=== PATIENT | female | born 1960 | race Caucasian/White ===

== ENCOUNTER 2017-03-17 11:29 | Emergency (ER) | payer BC ==
[2017-03-17 12:33] VITALS: BP 134/63
--- NOTE | 2017-03-17 12:48 | RAD ---
Indication: LEFT ankle and knee pain post fall onto ice today. Comparison: November 03, 2010 radiographs. Technique: AP, mortise, and lateral views LEFT ankle. Report: Normal articular alignment. Talocrural joint effusion. Mild soft tissue swelling over the lateral malleolus. Change in appearance of osseous irregularity at the caudal margin of the lateral malleolus compared with the prior exam suspicious for probable acute ligament osseous avulsion. No additional fracture evident. Small Achilles tendon insertion and moderate plantar fascia origin bone spurs. IMPRESSION: The constellation of findings favors acute potentially on chronic ligamentous injury with small osseous avulsion from the caudal margin of the lateral malleolus. Associated talocrural joint effusion and soft tissue swelling over the lateral malleolus without articular malalignment. Injury involving the anterior talofibular ligament and or calcaneofibular ligament would be most likely.
--- NOTE | 2017-03-17 12:50 | RAD ---
Indication: LEFT knee and ankle pain post fall onto ice. Comparison: No relevant prior exams available on the [facility] for comparison. Technique: LEFT knee: AP, tunnel, lateral, sunrise views. Report: Negative for joint effusion, fracture, or malalignment. Mild osteophytosis. Mild diffuse joint space narrowing. Unremarkable soft tissue contours. IMPRESSION: Negative for effusion or fracture. Kellgren and Brendan grade 2 osteoarthritis.
[2017-03-17] MEDS ORDERED: Acetaminophen TAB* 325 MG PO ONE (12:52)
--- NOTE | 2017-03-17 12:59 | UC ---
Lower Extremity/Ankle HPI - HPI Summary HPI Summary: Pt slipped on stairs that were wet. Pt with discomfort to left lateral aspect of ankle. Pt with pain at first, then got worse. No analgesia taken. No strike head. no blood HENT. No neck, back pain "from usual" No paresthesia. No anticoagulants. Pt on meds for chronic pain. Pt unable to take NSAIDs second to gastric bypass pt's medications reviewed this visit - History of Current Complaint Chief Complaint: UCLowerExtremity Stated Complaint: LEFT ANKLE AND KNEE INJURY Time Seen by Provider: 03/17/17 12:21 Hx Obtained From: Patient Hx Last Menstrual Period: 2 yrs ?: No Onset/Duration: Gradual Onset Severity Initially: Mild Severity Currently: Moderate Aggravating Factor(s): Standing, Ambulation - Allergies/Home Medications Allergies/Adverse Reactions: Allergies Allergy/AdvReac Type Severity Reaction Status Date / Time Ibuprofen AdvReac Intermediate GI Upset Verified 03/17/17 12:02 Home Medications: Home Medications Lansoprazole [Prevacid] 30 mg PO DAILY 03/17/17 [History Confirmed 03/17/17] PMH/Surg Hx/FS Hx/Imm Hx Previously Healthy: No Cardiovascular History: Hypertension - Surgical History Surgical History: Yes Surgery Procedure, Year, and Place: gastric bypass 1998, 1991, hip surgery - Family History Known Family History: Positive: None - Social History Occupation: Retired Alcohol Use: Occasionally Substance Use Type: None Smoking Status (MU): Never Smoked Tobacco - Immunization History Most Recent Influenza Vaccination: unsure Review of Systems Constitutional: Negative Skin: Negative Musculoskeletal: Arthralgia, Other: - left ankle All Other Systems Reviewed And Are Negative: Yes Physical Exam Triage Information Reviewed: Yes Appearance: Well-Appearing, No Pain Distress, Well-Nourished Vital Signs: Initial Vital Signs Temp 98.2 F 03/17/17 12:06 Pulse 53 03/17/17 12:06 Resp 20 03/17/17 12:06 BP 134/63 03/17/17 12:06 Vital Signs Reviewed: Yes Eye Exam: Normal Eyes: Positive: Conjunctiva Clear ENT Exam: Normal ENT: Positive: Pharynx normal, TMs normal Dental Exam: Normal Neck exam: Normal Neck: Positive: Supple, Nontender, No Lymphadenopathy Respiratory Exam: Normal Respiratory: Positive: Chest non-tender, Lungs clear, Normal breath sounds, No respiratory distress, No accessory muscle use Cardiovascular Exam: Normal Cardiovascular: Positive: RRR, No Murmur, Other: - 2+ CBT < 2 sec Abdominal Exam: Normal Abdomen Description: Positive: Nontender, No Organomegaly Bowel Sounds: Positive: Present Musculoskeletal: Positive: Other: - + SLE + flex/ext knee with mild discomfort No pain along joint line no pain tib/fib prox + flex/ext ankle left lateral malleolus inferior aspect, posterior aspect focal STS no crepitus No pain along tarsals, metatarsls, phalanges + discomfort with flex/ext Neurological Exam: Normal Neurological: Positive: Alert, Other: - + gross sensation throughout Psychological Exam: Normal Skin Exam: Normal Diagnostics - Radiology No standard instances Xray Interpretation: Positive (See Comments) Radiology Interpretation Completed By: Radiologist - lateral mal chip fracture STS Re-Evaluation - Re-Evaluation First Eval Comment: reviewed imaging with pt. cam boot. walker. norco/apap - precautions discussed istop check. ice. elevate. Pt has orthopedist in [place] - disc given Lower Extremity Course/Dx - Differential Dx/Diagnosis Provider Diagnoses: avulsion fx, ankle sprain Discharge - Discharge Plan Condition: Stable Disposition: HOME Prescriptions: HYDROcodone/ACETAMIN 5-325 MG* [[place] 5-325 TAB*] 1 - 2 tab PO Q6H PRN #15 tab MDD 8 PRN Reason: Severe Pain Patient Education Materials: Ankle Sprain (ED), Avulsion Fracture (ED) Referrals: Iliana Wells MD [Primary Care Provider] - Additional Instructions: - wear walking boot for support - Okay to take tylenol or [place] every [address], operate machinery or drink alcohol while taking [place] - apply ice (wrapped in a towel) 20 minutes at a time, 2-3 times a day for pain or swelling - anticipate increased pain over the next 36-48 hours. This is normal after a fall - contact your orthopedic provider in [place] to schedule a follow-up appointment.
== END 2017-03-17 13:43 | disposition home or self-care (01) ==
LOC: UCCORT 11:29
DX: S82.62XA Displaced fracture of lateral malleolus of left fibula, initial encounter for closed fracture (principal); I10 Essential (primary) hypertension; S93.402A Sprain of unspecified ligament of left ankle, initial encounter; G89.29 Other chronic pain; W00.1XXA Fall from stairs and steps due to ice and snow, initial encounter; Y92.9 Unspecified place or not applicable
CPT/HCPCS: 99213; A9270-GY; G0463

== ENCOUNTER 2018-02-11 11:52 | Emergency (ER) | payer BC ==
[2018-02-11 12:17] VITALS: BP 102/68
--- NOTE | 2018-02-11 12:30 | UC ---
Respiratory Complaint HPI - HPI Summary HPI Summary: Patient presents to the urgent care reporting 5 days of progressive cough and congestion. Patient states her lungs feel tight and wheezy worsen night. Patient's taken NyQuil and DayQuil without much relief. Patient denies fevers but does have chills and fatigue. Patient denies nausea vomiting but decreased appetite. Patient also reports bilateral ear pain is congestion postnasal drip. 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 Patient reports sick contacts or but no known strep. Patient's medications are reviewed this visit. Patient is not immunocompromised. - History of Current Complaint Chief Complaint: UCRespiratory Stated Complaint: COUGH, FATIGUE Time Seen by Provider: 02/11/18 12:22 Hx Obtained From: Patient Hx Last Menstrual Period: n/a Onset/Duration: Gradual Onset Timing: Constant Severity Initially: Mild Severity Currently: Mild Pain Intensity: 2 - Allergies/Home Medications Allergies/Adverse Reactions: Allergies Allergy/AdvReac Type Severity Reaction Status Date / Time ibuprofen AdvReac GI Upset Verified 02/11/18 12:12 Home Medications: Home Medications Cyanocobalamin TAB* [Vitamin B12 TAB*] 500 mcg PO DAILY 02/11/18 [History Confirmed 02/11/18] buPROPion SR TAB* [Wellbutrin SR TAB*] 100 mg PO DAILY 02/11/18 [History Confirmed 02/11/18] PMH/Surg Hx/FS Hx/Imm Hx Previously Healthy: Yes Cardiovascular History: Hypertension - Surgical History Surgical History: Yes Surgery Procedure, Year, and Place: gastric bypass 1998, 1991, right arm surgery, breast reduction 2016 - Family History Known Family History: Positive: Non-Contributory - Social History Occupation: Employed Part-time, Retired Alcohol Use: Rare Substance Use Type: None Smoking Status (MU): Never Smoked Tobacco - Immunization History Most Recent Influenza Vaccination: unsure Review of Systems All Other Systems Reviewed And Are Negative: Yes Constitutional: Positive: Chills, Fatigue ENT: Positive: Ear Ache, Nasal Discharge, Sinus Congestion, Sinus Pain/ Tenderness Respiratory: Positive: Cough, Other - wheeze Neurological: Positive: Negative Physical Exam - Summary Physical Exam Summary: Vital Signs Reviewed: Yes A+Ox3, no distress, intermittent coarse coug Eyes: Conjunctiva Clear, REINA. EOM intact and full ENT: Hearing grossly normal left TM + fluid no erythema, no retraction turbinates inflammed and boggy, + PND , mmoist, uvula midline, no exudate, no erythema Neck: Positive: Supple Respiratory: Positive: No respiratory distress, No accessory muscle use, coarse cough + end exp wheeze b/l no rhonci Cardiac: RRR nl s1, s2 no m/r abd soft + BS nt/nd no guarding, no distension Musculoskeletal Exam: SOLIS x 4 without difficulty Strength Intact, ROM Intact Neurological: Positive: Alert, + sensation throughout Psychological: Positive: Normal Response To Family Skin: Positive: no rash, no ecchymosis Triage Information Reviewed: Yes Vital Signs: Initial Vital Signs Temp 98.2 F 02/11/18 12:10 Pulse 70 02/11/18 12:10 Resp 18 02/11/18 12:10 BP 102/68 02/11/18 12:10 Pulse Ox 99 02/11/18 12:10 Diagnostic Evaluation - Laboratory O2 Sat by Pulse Oximetry: 99 Re-Evaluation - Re-Evaluation First Eval Re-Evaluation Time: 13:10 Change: Improved Comment: wheezing resolved. Pt reports feeling improved. Will d/c with abx, flonase, mdi. secretion precaution. return precaution. pt comfortable with plan Respiratory Course/Dx - Course Course Of Treatment: Patient with 4 days progressive cough and congestion. Patient also with sinus congestion ear pain. Patient's taken [id number] meds without relief. Patient works in elementary school. On exam patient's vital signs reviewed. Patient with end expiratory wheezing bilaterally, sinus congestion, serous otitis left ear. . We'll give DuoNeb and reassessed. - Differential Dx/Diagnosis Provider Diagnoses: acute bronchitis. layrngitis. left otitis serous Discharge - Sign-Out/Discharge Documenting (check all that apply): Patient Departure All imaging exams completed and their final reports reviewed: No Studies - Discharge Plan Condition: Stable Disposition: HOME Prescriptions: Albuterol HFA INHALER* [Ventolin HFA Inhaler*] 2 puff INH Q4H PRN #1 mdi PRN Reason: wheeze Amoxicillin PO (*) [Amoxicillin 500 MG CAP*] 500 mg PO Q12H #20 cap Fluconazole 150 MG (NF) [Diflucan 150 mg (NF)] 150 mg PO ONCE #1 tab Fluticasone NASAL SPRAY 50MCG* [Flonase NASAL SPRAY 50MCG*] 2 spray BOTH NARES DAILY #1 btl Inhaler, Assist Devices [Aerochamber Mv] 1 each PO Q4HR #1 spacer Patient Education Materials: Acute Bronchitis (ED), Serous Otitis Media (ED) Referrals: Iliana Wells MD [Primary Care Provider] - Additional Instructions: - Stay well hydrated. Drink plenty of non-alcoholic, non-caffinated beverages. - Alternate ibuprofen (Advil, Motrin) 600mg and Tylenol every 3 hours for pain or fever. Take with food. Do NOT take for more than 4-5 days. - These infections are spread by secretions - do NOT share eating or drinking utensils - clean items you share with other people such as cell phones, computer mouse, TV remote, computer tablets,etc. Once you have been antibiotics for 2 days, change your toothbrush and your pillowcase. - get plenty of restful sleep - use inhaler - 2 puffs every 4 hours today and tomorrow, then every 4hours as needed - humidify the air in the room where you sleep - boil water, run a hot steam shower, vaporizer, cups of water by heat register - okay to take over the counter decongestant and cough medication - use nasal spray as prescribed - you have been given treatment for a vaginal yeast infection if you develop after taking antibiotics - contact your doctor or return with questions or concerns - Billing Disposition and Condition Condition: STABLE Disposition: Home
[2018-02-11] MEDS ORDERED: Albuterol/Ipratropium NEB.SOL* Albuterol 2.5 MG/Ipratropium 0.5 MG 3 ML INH ONE (12:39)
== END 2018-02-11 13:16 | disposition home or self-care (01) ==
LOC: UCCORT 11:52
DX: J20.9 Acute bronchitis, unspecified (principal); J04.0 Acute laryngitis; H65.92 Unspecified nonsuppurative otitis media, left ear; I10 Essential (primary) hypertension; Z88.6 Allergy status to analgesic agent
CPT/HCPCS: 99212; A9270-GY; G0463

== ENCOUNTER 2019-03-01 15:18 | Emergency (ER) | payer BC ==
[2019-03-01 16:12] VITALS: BP 139/80
--- NOTE | 2019-03-01 17:05 | UC ---
Hand/Wrist HPI - HPI Summary HPI Summary: 58-year-old female who complains of right thumb pain without any specific injury. She also complains of both ears being plugged. No recent cold symptoms. She also complains of some dysuria just today. Denies any fever or chills. - History Of Current Complaint Chief Complaint: UCUpperExtremity Stated Complaint: RT THUMB INJURY/EAR PAIN Time Seen by Provider: 03/01/19 16:17 Hx Obtained From: Patient Hx Last Menstrual Period: n/a ?: No Onset/Duration: Gradual Onset Severity Initially: Mild Severity Currently: Mild Pain Intensity: 1 Character Of Pain: Dull, Aching Aggravating Factor(s): Movement Alleviating Factor(s): Rest Associated Signs And Symptoms: Positive: Negative - Allergies/Home Medications Allergies/Adverse Reactions: Allergies Allergy/AdvReac Type Severity Reaction Status Date / Time ibuprofen AdvReac GI Upset Verified 03/01/19 16:05 Home Medications: Home Medications Gabapentin CAP(*) [Neurontin 100 mg CAP(*)] 1 tab PO TID 03/01/19 [History Confirmed 03/01/19] Montelukast Sodium TAB* [Singulair 10 MG TAB*] 10 mg QPM 03/01/19 [History Confirmed 03/01/19] Naproxen TAB* [Naprosyn 250 mg TAB*] 500 mg DAILY 03/01/19 [History Confirmed ] PMH/Surg Hx/FS Hx/Imm Hx Previously Healthy: Yes Psychological History: Depression - Surgical History Surgical History: Yes Surgery Procedure, Year, and Place: gastric bypass 1998, 1991, right arm surgery, breast reduction 2016 - Family History Known Family History: Positive: None, Non-Contributory - Social History Lives: With Family Alcohol Use: Rare Substance Use Type: None Smoking Status (MU): Never Smoked Tobacco - Immunization History Most Recent Influenza Vaccination: unsure Review of Systems All Other Systems Reviewed And Are Negative: Yes ENT: Positive: Ear Ache - Ears are not painful however she feels they're plugged. Genitourinary: Positive: Dysuria, Frequency - Urinary symptoms started today. Musculoskeletal: Positive: Other: - Patient states over the past week she has developed some right thumb pain. She has been caring for her elderly father over the past few months and she denies any specific injury however noticed this week that the base of her right thumb is painful this week. She denies any numbness or tingling. Is Patient Immunocompromised?: No Physical Exam Triage Information Reviewed: Yes Appearance: Well-Appearing, No Pain Distress, Well-Nourished Vital Signs: Initial Vital Signs Temp 99.2 F 03/01/19 16:07 Pulse 77 03/01/19 16:07 Resp 16 03/01/19 16:07 BP 139/80 03/01/19 16:07 Pulse Ox 97 03/01/19 16:07 Vital Signs Reviewed: Yes Eyes: Positive: Conjunctiva Clear ENT: Positive: Hearing grossly normal, Pharynx normal, TMs normal, Uvula midline Neck: Positive: Supple, Nontender, No Lymphadenopathy Respiratory: Positive: Lungs clear, Normal breath sounds, No respiratory distress, No accessory muscle use Cardiovascular: Positive: RRR, No Murmur, Pulses Normal, Brisk Capillary Refill Abdomen Description: Positive: Nontender, No Organomegaly, Soft. Negative: CVA Tenderness (R), CVA Tenderness (L), Distended, Guarding, Hepatomegaly, Splenomegaly Bowel Sounds: Positive: Present Musculoskeletal Exam: Normal Musculoskeletal: Positive: Other: - Good peripheral pulses, neuro sensation and capillary refill. Full range of motion with good finger strength to flexion extension against resistance.. Minimal tenderness on palpation of the base of the right thumb. No erythema, deformity, swelling or bruising is noted. She has good thumb to fingers. Hand/Wrist Course/Dx - Course Course Of Treatment: Right thumb x-ray: Negative Urinalysis: Positive for leukocytes The patient is comfortable here. She is to follow-up with the orthopedist if she has continued thumb pain. Increase fluids. She is going to try Flonase 2 sprays in each nostril once a day per week and see if that helps the feeling of the ears being plugged. - Differential Dx/Diagnosis Provider Diagnosis: Allergic rhinitis, Thumb sprain, UTI (urinary tract infection) Discharge ED - Sign-Out/Discharge Documenting (check all that apply): Patient Departure All imaging exams completed and their final reports reviewed: Yes - Discharge Plan Condition: Good Disposition: HOME Prescriptions: Fluticasone NASAL SPRAY 50MCG* [Flonase NASAL SPRAY 50MCG*] 2 spray BOTH NARES DAILY 7 Days #1 btl Sulfamethox/Trimethoprim DS* [Bactrim DS 800/160 TAB*] 1 tab PO BID 5 Days #10 tab Patient Education Materials: Urinary Tract Infection in Women (DC), Allergic Rhinitis (DC), Finger Sprain (ED) Referrals: Iliana Wells MD [Primary Care Provider] - Bubba Grullon MD [Medical Doctor] - Additional Instructions: Apply heat to the thumb, may take Tylenol for pain. Avoid repetitive motion. Definite follow-up with the orthopedist if continued pain. Use your Flonase nasal spray 2 sprays in each nostril once a day for a week and then decrease to 1 spray in each nostril once a day per week. For the urinary tract infection increase fluids, take the Bactrim with food, follow-up with your primary care provider if no improvement by Wednesday. If you develop any fever, chills, back pain, vomiting and unable keep the medicine down and go to the emergency room for further treatment. - Billing Disposition and Condition Condition: GOOD Disposition: Home - Attestation Statements Provider Attestation: I was available for consult. This patient was seen by the ALEM. The patient was not presented to, seen by, or examined by me. -Taisha
== END 2019-03-01 17:22 | disposition home or self-care (01) ==
LOC: UCCORT 15:18
DX: S63.601A Unspecified sprain of right thumb, initial encounter (principal); N39.0 Urinary tract infection, site not specified; J30.9 Allergic rhinitis, unspecified; Z88.6 Allergy status to analgesic agent; X58.XXXA Exposure to other specified factors, initial encounter; Y92.9 Unspecified place or not applicable
CPT/HCPCS: 81002; 81003; 87086; 99212; G0463

== ENCOUNTER 2021-07-24 10:53 | Observation (INO) ==
[~2021-07-24 10:53] MED LIST: Buffered Lidocaine 1% SYRIN 1 ml INTRADERM ONE; Lactated Ringers 1000 ml BAG 1,000 ML IV SCH; Naloxone 0.4 mg VIAL 0.4 mg/ml 1 ml VIAL IV PRN; Ondansetron 4 mg VIAL 2 MG/ML 2 ml VIAL IV PRN
[2021-07-24] MEDS ORDERED: Propofol 10 MG/ML 20 ML BTL ONE ×2 (10:54→15:35)
[2021-07-24] MEDS ORDERED: Ondansetron 4 mg VIAL 2 MG/ML 2 ml VIAL ONE (10:54)
[2021-07-24] MEDS ORDERED: Dexamethasone IV 4 MG/ML VIAL 1 ml VIAL ONE ×2 (10:54→11:41)
[2021-07-24] MEDS ORDERED: Lidocaine 2% PF 5 ML VIAL ONE (10:54)
[2021-07-24] MEDS ORDERED: HYDROmorphone 0.5 MG/0.5 ML SYRINGE ONE ×2 (10:54→14:07)
[2021-07-24] MEDS ORDERED: Midazolam 2 mg/2 ml VIAL 1 mg/ml 2 ml VIAL (2 mg) ONE ×2 (10:54→11:41)
[2021-07-24] MEDS ORDERED: fentaNYL 250 mcg/5 ml 50 MCG/ML 5 ml VIAL (250 MCG) ONE (10:55)
[2021-07-24] MEDS ORDERED: ceFAZolin 2 GM PREMIX 2 GM/50 ML BAG ONE (11:00)
[2021-07-24] MEDS ORDERED: Bupivacaine 0.5% SDV PF 30ML VIAL ONE (12:00)
[2021-07-24] MEDS ORDERED: Lidocaine 1% MPF 5 ML VIAL ONE (12:01)
[2021-07-24] MEDS ORDERED: Ropivacaine 5 MG/ML 20 ML VIAL 0.5% (100 MG) ONE (12:47)
[2021-07-24] MEDS ORDERED: Rocuronium 50 mg VIAL 10 mg/ml 5 ml VIAL (50 mg) ONE (13:18)
[2021-07-24] MEDS ORDERED: Labetalol IV 5 MG/ML 20 ml VIAL ONE (14:15)
[2021-07-24] MEDS ORDERED: Lactulose 30 ml UDC PO PRN (14:32)
[2021-07-24] MEDS ORDERED: Magnesium Hydroxide LIQ 30 ML UDC PO PRN (14:32)
[2021-07-24] MEDS ORDERED: Ondansetron ODT 4 mg TAB 4 MG TAB PO PRN (14:32)
[2021-07-24] MEDS ORDERED: Ondansetron 4 mg VIAL 2 MG/ML 2 ml VIAL IV PRN (14:32)
[2021-07-24] MEDS ORDERED: fentaNYL 100 mcg/2 ml 50 MCG/ML VIAL ONE ×2 (15:53→16:32)
[2021-07-24] MEDS: fentaNYL 100 mcg/2 ml 50 MCG/ML VIAL IV PRN ×5 (15:55→16:37)
[2021-07-24] MEDS: HYDROmorphone 1 MG/1 ML SYRINGE IV PRN ×5 (16:00→16:59)
[2021-07-24] MEDS ORDERED: HYDROmorphone 1 MG/1 ML SYRINGE ONE (16:00)
[2021-07-24] MEDS ORDERED: HYDROcodone/ACETAMIN 5/325 mg TAB ONE (18:33)
[2021-07-24] MEDS: Lactated Ringers 1000 ml BAG 1,000 ML IV SCH (18:44)
[2021-07-24] MEDS: oxyCODONE SR 15 mg TAB PO SCH (20:42)
[2021-07-24] MEDS: Magnesium Hydroxide LIQ 30 ML UDC PO SCH (20:43)
[2021-07-24] MEDS ORDERED: Cyclobenzaprine 5 mg TAB (NF) PO SCH (21:00)
[2021-07-24] MEDS: ceFAZolin VIAL 1 GM in NS 0.9% 50 ML 50 ML IVPB SCH (22:36)
[2021-07-25] MEDS: ceFAZolin VIAL 1 GM in NS 0.9% 50 ML 50 ML IVPB SCH ×2 (05:21→13:09)
[2021-07-25] MEDS: Lactated Ringers 1000 ml BAG 1,000 ML IV SCH (05:24)
[2021-07-25 07:48] LABS: Hematocrit 33 % (35-47); Hemoglobin 11.2 g/dL (12.0-16.0); Mean Platelet Volume 7.4 fL (7.4-10.4); Platelet Count 180 10^3/uL (150-450)
[2021-07-25 08:17] LABS: Calcium 8.2 mg/dL (8.6-10.3); Potassium 4.7 mmol/L (3.5-5.0); eGFR CKD-EPI 88.5 (>60)
[2021-07-25] MEDS: Magnesium Hydroxide LIQ 30 ML UDC PO SCH (08:32)
[2021-07-25] MEDS: oxyCODONE SR 15 mg TAB PO SCH (08:33)
[2021-07-25 08:51] VITALS: BP 113/65
[2021-07-25] MEDS ORDERED: CMCS:Venlafaxine 25 mg TAB (NF) PO SCH (09:00)
[2021-07-25] MEDS ORDERED: Vitamin THERAPEUTIC TAB PO SCH (09:00)
== END 2021-07-25 13:45 | disposition home or self-care (01) ==
LOC: SSU → INTOOBSV 10:53 → AA 10:53
PROVIDERS: ADMIT Orthopaedic Surgery Adult Reconstructive Orthopaedic Surgery; ATTEND Orthopaedic Surgery Adult Reconstructive Orthopaedic Surgery